=== PATIENT | male | born 1965 ===

== ENCOUNTER → 2017-07-31 | Outpatient (REF) ==
--- NOTE | 2017-08-01 04:26 | REP ---
Clinical: Pain and disability. Technique: AP, lateral, bilateral oblique and sunrise views of the right knee. Findings: Moderate/early advanced degenerative changes are appreciated. Findings include increase sclerosis along the tibial plateau, marginal spurring, cortical irregularities, and joint space narrowing. Lateral and sunrise views demonstrate osteophyte formation along the superior and lateral margins of the patella with increased sclerosis along the posterior patellar surface and joint space narrowing. No acute fracture dislocation. No obvious effusion. Impression: Moderate/early advanced bicompartmental osteoarthritic degenerative changes. Signed by Antony Mcnally MD 08/01/2017 04:18 A
--- NOTE | 2017-08-01 05:26 | REP ---
Clinical: Pain and disability. Technique: AP, lateral, coned-down views of the lumbosacral spine. Findings: Moderate to advanced multilevel degenerative disc osteophyte complexes are appreciated throughout the visualized lower thoracic and lumbosacral spine. Findings include marginal osteophytes, endplate sclerosis/irregularity, disc space narrowing, and hypertrophic facet changes. No acute fracture / compression injury or subluxation. Impression: Moderate to advanced multilevel degenerative changes. Signed by Antony Mcnally MD 08/01/2017 05:17 A
== END ==
LOC: M SMT 10:51
PROVIDERS: ATTEND Internal Medicine
DX: Z02.71 Encounter for disability determination (principal)